=== PATIENT | female | born 1965 | race African-American/Black ===

== ENCOUNTER 2016-11-25 17:45 | Emergency (ER) | payer OTHER ==
[~2016-11-25] VITALS: Ht 154.9 cm; Wt 94.8 kg
== END 2016-11-25 19:52 | disposition home or self-care (01) ==
LOC: ED 17:45
DX: S39.012A Strain of muscle, fascia and tendon of lower back, initial encounter (principal)
CPT/HCPCS: 81000; 96372; 99283; J1885